=== PATIENT | male | born 1970 | race Hispanic/Latino ===

== ENCOUNTER 2018-12-08 11:41 | Observation (INO) | payer SELFPAY ==
[~2018-12-08] VITALS: Ht 172.7 cm; Wt 78.2 kg
[~2018-12-08 11:41] MED LIST: KEFLEX500 MG OR; NO CURRENT MEDS; NO MEDS; PRILOSEC20 MG OR
[2018-12-08 12:43] LABS: HEMATOCRIT 42.1 % (39.0-50.0); IMMATURE GRANULOCYTES 1.6 % (0.0-5.0); MEAN CELL VOLUME 96.6 fL CALC (80.0-100.0); MEAN CORPUSCULAR HGB CONC 34.2 g/L CALC (32.0-36.0); NEUT# 15.26 thou/uL (1.82-7.42); RED BLOOD COUNT 4.36 mill/uL (4.70-6.10); RED CELL DISTRI WIDTH 11.9 % (11.5-15.5)
[2018-12-08 12:46] LABS: HEMOGLOBIN 14.4 g/dl (14.0-18.0)
[2018-12-08 13:07] LABS: BILIRUBIN, TOTAL 1.7 mg/dL (0.0-1.4); BUN 12 mg/dL (9-20); BUN/CREATININE RATIO 17 (12-20 (CALC)); CARBON DIOXIDE 25 mmol/l (22-30); CHLORIDE 97 mmol/l (95-108); CREATININE 0.7 mg/dL (0.7-1.3); GFR > 60 ML/MIN (>=60 (CALC)); GFR FOR AFR.AMER. > 60 ML/MIN (>=60 (CALC))
[2018-12-08 13:10] LABS: ALBUMIN 3.9 g/dL (3.2-5.0); ALKALINE PHOSPHATASE 195 u/l (38-126); ANION GAP 18 (6-22 (CALC)); SGOT/AST 39 u/l (17-59); SODIUM 136 mmol/l (137-146)
[2018-12-08 17:21] VITALS: BP 112/67
[2018-12-08 19:39] VITALS: BP 123/76
[2018-12-09 04:06] VITALS: BP 125/83
[2018-12-09 06:19] LABS: HEMATOCRIT 37.5 % (39.0-50.0); HEMOGLOBIN 12.6 g/dl (14.0-18.0); IMMATURE GRANULOCYTES 1.3 % (0.0-5.0); MEAN CELL VOLUME 97.7 fL CALC (80.0-100.0); MEAN CORPUSCULAR HGB 32.8 pG CALC (26.0-32.0); MEAN CORPUSCULAR HGB CONC 33.6 g/L CALC (32.0-36.0); NEUT# 10.06 thou/uL (1.82-7.42); RED BLOOD COUNT 3.84 mill/uL (4.70-6.10); RED CELL DISTRI WIDTH 12.1 % (11.5-15.5)
[2018-12-09 06:25] LABS: ALKALINE PHOSPHATASE 165 u/l (38-126); AMYLASE 43 u/l (30-110); ANION GAP 14 (6-22 (CALC)); BUN 9 mg/dL (9-20); BUN/CREATININE RATIO 17 (12-20 (CALC)); CARBON DIOXIDE 24 mmol/l (22-30); CHLORIDE 103 mmol/l (95-108); CREATININE 0.5 mg/dL (0.7-1.3); GFR > 60 ML/MIN (>=60 (CALC)); GFR FOR AFR.AMER. > 60 ML/MIN (>=60 (CALC)); LIPASE 123 u/l (23-300); MAGNESIUM 2.1 mg/dL (1.6-2.3); POTASSIUM 3.9 mmol/l (3.5-5.1); SGOT/AST 28 u/l (17-59); SODIUM 137 mmol/l (137-146); TOTAL PROTEIN 6.6 g/dL (6.3-8.2)
[2018-12-09 06:40] LABS: ALBUMIN 3.1 g/dL (3.2-5.0)
[2018-12-09 08:25] VITALS: BP 124/76
[2018-12-09 16:15] VITALS: BP 137/88
[2018-12-09 19:52] VITALS: BP 133/90
[2018-12-09 19:55] VITALS: BP 161/72
[2018-12-10 04:02] VITALS: BP 115/77
[2018-12-10 09:21] VITALS: BP 120/83
[2018-12-10] MEDS ORDERED: DOXYCYCL HYC100 MG PO (13:40)
== END 2018-12-10 14:21 | disposition home or self-care (01) | DRG 195 ==
LOC: ED 11:41 → ED-I 15:20 → ED 16:14 → MS2 16:15
PROVIDERS: Emergency Medicine; ADMIT Internal Medicine Nephrology; ATTEND Internal Medicine Nephrology
DX: J18.9 Pneumonia, unspecified organism (principal); D64.9 Anemia, unspecified; R74.8 Abnormal levels of other serum enzymes; Z23 Encounter for immunization
CPT/HCPCS: G0378; J1650; Q9967